=== PATIENT | female | born 1960 | race Caucasian/White ===

== ENCOUNTER → 2017-08-19 | Day surgery (SDC) | payer OTHER ==
[~2017-08-19] VITALS: Ht 162.6 cm; Wt 103.4 kg
--- NOTE | 2017-08-19 14:26 | Operative Report ---
Operative/Inv Procedure Report Surgery Date: 08/19/17 Name of Procedure: Right axillary vein Port-A-Cath placement with ultrasound and fluoroscopic guidance Pre-Operative Diagnosis: Breast cancer Post-Operative Diagnosis: Same Estimated Blood Loss: scant Surgeon/Mail Teller: Julio Cesar PATTERSON,Bobo Kellogg Anesthesia: local monitored anesthesi Implants: PowerPort Operative/Procedure Note Note: Patient brought to the operating room and laid supine. The arm tucked and a roll placed behind the shoulder. Her right chest and neck were then prepped and draped. She was sedated. Using ultround imaging the left axillary vein was visualized and percutaneously accessed below the right clavicle at the confluence of the axillary and cephalic veins, after local anesthesia placed. A wire was placed on the right atrium. Confirmation with fluoroscopic imaging was performed. The left chest was then infiltrated further with local anesthesia an incision made over the wire. An inferiorly based pocket was created with blunt and cautery dissection. The port was placed into the pocket and the catheter measured under fluoroscopic imaging. It was trimmed to 23 cm. Using fluoroscopy the dilator was placed down into the SVC. The wire was removed and passed off the field. The catheter was placed through the peel-away sheath. Sheath was then removed. Final fluoroscopic images show the catheter in the atrial SVC junction. The catheter was aspirated and flushed with concentrated heparin. The port was anchored to the deep subcutaneous tissues tissues with 0 Vicryl suture. The skin was closed with 3-0 and 4-0 Vicryl. Steri-Strips and sterile dressing applied. Sponge and needle counts are correct.
--- NOTE | 2017-08-19 14:58 | RADIOLOGY REPORT ---
EXAMINATION: XR PORTABLE CHEST CLINICAL INFORMATION: Port-A-Cath placement COMPARISON: None TECHNIQUE: Portable frontal view of the chest was obtained. 2:31 PM FINDINGS: Right subclavian line catheter tip over the right atrial shadow. Catheter tip about 1.5 cm distal to the cavoatrial junction. There is no pneumothorax. The lungs are clear. No pulmonary vascular congestion. No pleural effusion. Cardiomediastinal contours are normal. IMPRESSION: Right subclavian line catheter tip of the right atrial shadow. No pneumothorax.
--- NOTE | 2017-08-19 15:28 | RADIOLOGY REPORT ---
EXAMINATION:\H\ \N\XR CHEST CLINICAL INFORMATION: Right-sided Port-A-Cath insertion. COMPARISON: Plain film portable chest x-ray dated 08/19/2017. TECHNIQUE: Frontal view of the chest was obtained. FINDINGS: 2 fluoroscopic images are submitted. A Port-A-Cath is present extending into the right subclavian vein. Fluoroscopy time: 1.0 minutes. 2. Cumulative dose, 6.5 mg. IMPRESSION: Fluoroscopic images from Port-A-Cath insertion..
== END ==
LOC: STS 01:55
DX: C50.119 Malignant neoplasm of central portion of unspecified female breast (principal); I10 Essential (primary) hypertension; E66.9 Obesity, unspecified; Z68.36 Body mass index [BMI] 36.0-36.9, adult; G47.33 Obstructive sleep apnea (adult) (pediatric)
CPT/HCPCS: 71045; C1788; J0690; J1644; J2250

== ENCOUNTER 2017-11-17 19:40 | Inpatient (IN) | payer OTHER ==
[~2017-11-17] VITALS: Ht 162.6 cm; Wt 91.7 kg
[~2017-11-17 19:40] MED LIST: LISINOPRIL20 M1 PO
--- NOTE | 2017-11-17 20:35 | RADIOLOGY REPORT ---
EXAMINATION: XR PORTABLE CHEST CLINICAL INFORMATION: Evaluate for pneumonia. Fever. COMPARISON: Chest x-ray from 08/19/2017. TECHNIQUE: Portable frontal view of the chest was obtained. FINDINGS: The right-sided chest port device is in place. No airspace opacities or pleural effusions are seen. The cardiomediastinal silhouette is normal. No acute osseous abnormality is evident. IMPRESSION: Clear lungs. No acute process.
[2017-11-17 20:36] LABS: ABSOLUTE BASOPHIL COUNT 0 /CUMM (0.0-0.2); ABSOLUTE EOSINOPHIL COUNT 0 /CUMM (0.0-0.7); ABSOLUTE GRANULOCYTE CT 3.9 /CUMM (1.4-6.5); ABSOLUTE LYMPH COUNT 0.6 /CUMM (1.2-3.4); ABSOLUTE MONOCYTE COUNT 0.4 /CUMM (0.10-0.60); BASOPHIL % 0.4 % (0.0-2.0); EOSINOPHIL % 0 % (0-5); GRANULOCYTE % 77.9 % (42.2-75.2); HEMATOCRIT 30.3 % (37-47); MEAN CORPUSCULAR HGB 27.3 PG (27.0-31.0); MEAN CORPUSCULAR HGB CONC 32.6 G/DL (33.0-37.0); MEAN CORPUSCULAR VOLUME 83.5 FL (81.0-99.0); MEAN PLATELET VOLUME 7.3 FL (7.4-10.4); PLATELET COUNT 216 /CUMM (130-400); RBC DISTRIBUTION WIDTH 17.1 % (11.5-14.5); RED BLOOD CELL CT 3.63 /CUMM (4.20-5.40)
--- NOTE | 2017-11-17 22:29 | ED GENERAL ADULT ---
History of Present Illness General Chief Complaint: General Adult Stated Complaint: FEVER OF 102.3, PT ON CHEMO MEDS Source: patient Exam Limitations: no limitations Vital Signs & Intake/Output Vital Signs & Intake/Output Vital Signs Date Time Temp Pulse Resp B/P B/P Pulse O2 O2 Flow FiO2 Mean Ox Delivery Rate 11/18 1600 Room Air 11/18 1422 98.8 90 20 126/74 96 Room Air 11/18 0554 98.6 82 20 138/86 94 Room Air 11/18 0110 94 11/18 0102 99.6 81 20 132/82 94 Room Air 11/18 0025 99.2 82 18 114/62 95 Room Air 11/17 2223 100.6 11/17 2220 97 18 130/71 94 11/17 2059 101.4 ED Intake and Output 11/18 0000 11/17 1200 Intake Total Output Total 400 Balance -400 Output, Urine 400 Patient 200 lb Weight Allergies Coded Allergies: phenobarbital (RASH 08/18/17) phenytoin (From DILANTIN) (RASH 08/18/17) Triage Note: PER PT HAD CHEMO YESTERDAY (ERIBULIN) FOR STAGE 4 METASTATIC L BREAST CANCER AND TODAY DEVELOPED FEVER TO 103.0 PT CO HEADACHE AND GUILLE PAIN(KIDNEY) Triage Nurses Notes Reviewed? yes Onset: Abrupt Duration: day(s): (1-2), constant, continues in ED, getting worse Timing: single episode today Injury Environment: home Severity: moderate, severe Severity Numbers: 7 No Modifying Factors: none Associated Symptoms: back pain, cough LMP (ages 10-50): post menopausal, unknown : No Patient currently breastfeeds: No HPI: 57-year-old female past medical history of metastatic cancer presents for evaluation of fever. Patient states that 2 or 3 days ago she developed flulike symptoms including cough and body aches. Today she noticed that she had a fever of 103. She has a history of metastatic left breast cancer and is currently on chemotherapy last dose chemotherapy was yesterday. SHE IS ON ERIBULIN which she gets once weekly for 2 weeks and gets a week off she's been doing this since August. She is not taking any Tylenol for her symptoms. He denies any chest pain but does report some shortness of breath due to the cough. She does not smoke no history of underlying lung disease. No lower extremity edema no rashes. She does report sick contacts at a wedding that she went to. 2 people had strep throat. She does not have a sore throat. She does report some pain in her left ear and some nasal congestion. No recent surgery. (Willi Franco) Reconcile Medications Olmesartan Medoxomil (Benicar) 20 MG TABLET 1 TAB PO DAILY bp (Reported) (Caro PATTERSON,Carlos) Past History Travel History Traveled to [place] past 21 day No Medical History Any Pertinent Medical History? see below for history Neurological: NONE EENT: NONE Cardiovascular: hypertension Respiratory: NONE Gastrointestinal: NONE Hepatic: NONE Renal: polycystic kidney disease Musculoskeletal: NONE Psychiatric: NONE Endocrine: NONE Cancer(s): breast cancer Surgical History Surgical History: cholecystectomy Psychosocial History Who do you live with Spouse Services at Home None What is your primary language Maltese Tobacco Use: Never used Family History Hx Contributory? No (Willi Franco) Review of Systems Review of Systems Constitutional: Reports: diaphoresis, fever, malaise. EENTM: Reports: nasal congestion. Respiratory: Reports: see HPI, cough, short of breath. Cardiovascular: Reports: no symptoms. GI: Reports: no symptoms. Genitourinary: Reports: no symptoms. Musculoskeletal: Reports: see HPI, back pain, muscle pain, muscle stiffness. Skin: Reports: no symptoms. Neurological/Psychological: Reports: no symptoms. Hematologic/Endocrine: Reports: no symptoms. Immunologic/Allergic: Reports: no symptoms. All Other Systems: Reviewed and Negative (Willi Franco) Physical Exam Physical Exam General Appearance: well developed/nourished, no apparent distress, alert, awake Head: atraumatic, normal appearance Eyes: Bilateral: normal appearance, PERRL, EOMI. Ears, Nose, Throat: normal pharynx, normal ENT inspection, hearing grossly normal Neck: normal inspection, supple, full range of motion Respiratory: normal breath sounds, chest non-tender, no respiratory distress, lungs clear Cardiovascular: regular rate/rhythm, normal peripheral pulses Peripheral Pulses: 2+ radial (R), 2+ radial (L) Gastrointestinal: normal bowel sounds, soft, non-tender, no organomegaly Back: normal inspection, normal range of motion, no vertebral tenderness Extremities: normal inspection, normal range of motion, no edema Neurologic/Psych: no motor/sensory deficits, awake, alert, oriented x 3, normal gait Skin: intact, normal color, warm/dry Lymphatic: no anterior cervical tony Core Measures ACS in differential dx? No CVA/TIA Diagnosis: No Sepsis Present: No Sepsis Focused Exam Completed? No (Dwayne BOYKIN,Willi) Progress Differential Diagnoses I considered the following diagnoses in my evaluation of the patient: [Febrile neutropenia, sepsis, pneumonia, influenza, UTI, intra-abdominal infection, PE, cellulitis, viral upper rest for infection, strep throat] Plan of Care: Orders Procedure Date/time Status CBC WITHOUT DIFFERENTIAL 11/19 599 Active BASIC ELECTROLYTES PLUS BUN&CR 11/19 599 Active Regular Diet 11/18 D Active Regular Diet 11/18 B Complete Change service to 11/18 722 Active CBC WITHOUT DIFFERENTIAL 11/18 599 Complete BASIC ELECTROLYTES PLUS BUN&CR 11/18 599 Complete NUTRITIONAL CONSULT 11/18 0109 Active Weight 11/18 004 Active Vital Signs 11/18 48 Active Teach/Educate 11/18 48 Active Pain Treatment and Response 11/18 48 Active Nutritional Intake, Monitor 11/18 48 Active Isolation 11/18 48 Active Intake & Output 11/18 004 Active Patient Care Conference 11/18 004 Active Activity/Ambulation 11/18 004 Active BIPAP 11/18 UNK Active Lab Add-on Test 11/18 UN Active PHARMACY COMMUNICATION FORM 11/18 UN Active Pathway - chart 11/17 2332 Active House Staff 11/17 2332 Active Patient Data 11/17 233 Active Code Status 11/17 2332 Active Patient Data 11/17 233 Active THROAT CULTURE W/QUICK STREP 11/17 2326 Active Add-on Test (ER Only) 11/17 231 Active OXYGEN SETUP (GEN) 11/17 221 Active Saline Lock 11/18 2215 Active Admit to inpatient 11/17 221 Active Vital Signs 11/17 221 Active Activity/Ambulation 11/18 2215 Complete Code Status 11/18 2215 Complete Intake & Output 11/17 2122 Active CULTURE,URINE 11/18 2055 Active URINE OSMOLALITY 11/18 2055 Complete URINE LYTES, SPOT 11/18 2055 Complete VIRAL CULTURE 11/18 2035 Active SERUM OSMOLALITY 11/17 2022 Complete VTE Mechanical Prophylaxis 11/17 UNK Active Current Medications Sig/Hossein Start time Last Medication Dose Stop Time Status Admin Vancomycin HCl 1,000 MG 2359 11/18 2358 AC Sodium Chloride 250 ML (Normal Saline 0.9%) Ceftazidime 1,000 MG IQ8 11/18 0800 AC 11/18 (Fortaz) 1626 Sodium Chloride 1,000 ML Q13H 11/18 0100 AC 11/18 (Normal Saline 0.9%) 1545 Heparin Sodium 5,000 UNIT Q8 11/18 0015 AC 11/18 (Porcine) 1307 Acetaminophen 325 MG Q6 PRN 11/17 2345 AC (Tylenol) Laboratory Tests 11/18/17 0807: Anion Gap 10, Estimated GFR 15 L, BUN/Creatinine Ratio 10.0, CBC w Diff NO MAN DIFF REQ, RBC 3.22 L, MCV 83.1, MCH 27.3, MCHC 32.8 L, RDW 17.9 H, MPV 7.6, Gran % 66.9, Lymphocytes % 20.8, Monocytes % 11.6 H, Eosinophils % 0.1, Basophils % 0.6, Absolute Granulocytes 1.9, Absolute Lymphocytes 0.6 L, Absolute Monocytes 0.3, Absolute Eosinophils 0, Absolute Basophils 0 11/17/172300: Lactic Acid Cancelled 11/17/172055: Urine Color YEL, Urine Clarity CLEAR, Urine pH 6.0, Ur Specific [place] 1.015, Urine Protein 30 H, Urine Ketones NEG, Urine Nitrite NEG, Urine Bilirubin NEG, Urine Urobilinogen 0.2, Ur Leukocyte Esterase NEG, Ur Microscopic SEDIMENT EXAMINED, Urine RBC 1-3, Urine WBC 1-3 H, Ur Epithelial Cells RARE, Urine Bacteria RARE H, Urine Hemoglobin SMALL H, Urine Glucose NEG 11/17/172055: Urine Osmolality 323, Ur Random Creatinine 67.1, Ur Random Sodium 62, Ur Random Potassium 18.3, Fraction Sodium Excret 2.4 H 11/17/172035: Virus Culture Pending Microbiology 11/17 2108 BLOOD: Blood Culture - RES 11/18 2055 URINE ROUT: Urine Culture - RES 11/18 2035 NASOPHARYN: Influenza Virus A & B Rapid Smear - COMP Patient seen and evaluated. She has a history of metastatic breast cancer is currently on chemotherapy. She had a MAXIMUM TEMPERATURE of 103 today. We'll check basic labs including blood cultures. Patient was medicated with IV fluids and IV Tylenol. Patient's fever has persisted despite fluids and Tylenol. Her labs do not show neutropenia or an elevated white blood cell count. She does have some acute kidney injury with a creatinine at 3.5 she normally runs in the twos. Chest x- ray is negative. A CT scan of the chest, pelvis was ordered for further evaluation. CT scan does not show any focus of infection. Patient continues to have fever of unknown origin. Due to patient's history of metastatic breast cancer on chemotherapy she'll be admitted for further evaluation and treatment. Patient will be started on prophylactic antibiotics Fortaz and vancomycin. Continue with IV fluids. Discussed case with Dr. LACEY and he agrees. Diagnostic Imaging: Viewed by Me: Radiology Read, CT Scan. Discussed w/RAD: Radiology Read, CT Scan. Radiology Impression: PATIENT: DAJA WALLER PRESENT AGE: 57 PATIENT ACCOUNT NO: [id number] : 60 LOCATION: [facility] ORDERING PHYSICIAN: Willi BOYKIN SERVICE DATE: 11/17/17 EXAM TYPE: CAT - CT ABD & PELVIS W/O IV CONTRAS; CT CHEST WO IV CONTRAST EXAMINATION: CT CHEST, ABDOMEN AND PELVIS WITHOUT CONTRAST CLINICAL INFORMATION: Fever of unknown origin . History of breast cancer. COMPARISON: Chest x-ray 11/17/2017. CT scan abdomen pelvis 09/27/2017. CT of chest abdomen pelvis 03/20/2016. PET/CT study 07/22/2016. TECHNIQUE: Multidetector volumetric CT imaging of the chest, abdomen and pelvis was without oral or intravenous contrast. Coronal and sagittal reformatted images are performed at the CT scanner. DLP: 734.6 mGy-cm. FINDINGS: CT CHEST: Lungs: The lungs are clear with no evidence of inflammation or nodules. Mediastinum: There is a small pericardial effusion. This is new since CAT scan of 03/20/2016. There is enlarged lymph node in the prevascular retrosternal space measuring 1.5 cm axial image 16 (2). Central port catheter tip in the superior vena cava. Pleura: There is no pleural effusion. No pleural mass or thickening. Axilla: Status post left breast implant. There is large lymph nodes in the left axilla. Largest lymph node measuring 4 cm. This lymph node is new since the CAT scan 03/20/2016. CT ABDOMEN AND PELVIS: LIVER, GALLBLADDER, AND BILIARY TREE: Multiple hypodense lesions throughout the liver. These are unchanged since prior CAT scans consistent with hepatic cysts. No new lesions. No intrahepatic bile duct dilatation. Status post cholecystectomy. PANCREAS: No acute change of the pancreas. No mass. No pancreatic duct dilatation. SPLEEN: Spleen normal in size and contour. No focal lesion. ADRENAL GLANDS: Adrenal glands are normal in size. No focal mass. KIDNEYS AND URETERS: Numerous hypodense cysts scattered with calcifications throughout the parenchyma both kidneys. There is no hydronephrosis. No ureteral calculi. BLADDER: Unremarkable. GASTROINTESTINAL TRACT: No acute change of the bowel. No bowel obstruction. No bowel wall thickening or edema. There is a moderate to large- volume of stool scattered throughout the colon. The appendix is not identified. Small bowel loops are unremarkable. MESENTERY: No focal inflammation. No free fluid. No free air. ABDOMINAL WALL: No significant hernia is appreciated. LYMPH NODES: There are multiple small lymph nodes in the retroperitoneum the parapelvic paracaval location. These are stable since 09/27/2017. VASCULAR: Unremarkable. PELVIC VISCERA: Uterus is anteverted. No adnexal abnormality. OSSEOUS STRUCTURES: Focal sclerotic lesion of the T3 vertebrae there is focal sclerotic lesion of the right iliac wing adjacent to the sacroiliac joint. These are stable since CAT scan 09/27/2017. Both of these lesions are not FDG avid on the PET/CT study of 07/22/2016. IMPRESSION: 1. Small pericardial effusion. 2. Lymphadenopathy in the left axilla and retroperitoneum. 3. Focal sclerotic metastatic lesions in T3 and right iliac. Both of these lesions were no longer FDG avid on the PET/CT study of 07/22/2016. 4. Multiple hypodensities of the liver consistent with hepatic cysts unchanged since 03/20/2016. 5. Multiple renal cysts stable since prior studies. DICTATED BY: Mani Davis MD DATE/TIME DICTATED:11/17/172248 SYNTHETIC GEM PRESS OPERATOR:ULISES DATE/TIME TRANSCRIBED:2248 CONFIDENTIAL, DO NOT COPY WITHOUT APPROPRIATE AUTHORIZATION. < Electronically signed in Other Vendor System> SIGNED BY: Mani Davis MD [id number], PATIENT: DAJA WALLER PRESENT AGE: 57 PATIENT ACCOUNT NO: [id number] : 60 LOCATION: [facility] ORDERING PHYSICIAN: Willi BOYKIN SERVICE DATE: 11/17/17 EXAM TYPE: RAD - XRY- PORTABLE CHEST XRAY EXAMINATION: XR PORTABLE CHEST CLINICAL INFORMATION: Evaluate for pneumonia. Fever. COMPARISON: Chest x-ray from 08/19/2017. TECHNIQUE: Portable frontal view of the chest was obtained. FINDINGS: The right- sided chest port device is in place. No airspace opacities or pleural effusions are seen. The cardiomediastinal silhouette is normal. No acute osseous abnormality is evident. IMPRESSION: Clear lungs. No acute process. DICTATED BY: Herbert Zee MD DATE/TIME DICTATED:11/17/172029 SYNTHETIC GEM PRESS OPERATOR:ULISES DATE/TIME TRANSCRIBED:11/17/172029 CONFIDENTIAL, DO NOT COPY WITHOUT APPROPRIATE AUTHORIZATION. <Electronically signed in Other Vendor System> SIGNED BY: Herbert Zee MD 11/17/172034 Initial ED EKG: normal sinus rhythm, LEFT AXIS DEVIATION, BORDERLINE r-WAVE PROGRESSION IN ANTERIOR LEADS (Willi Franco) Departure Departure Disposition: STILL A PATIENT Condition: Stable Clinical Impression Primary Impression: Acute kidney injury Secondary Impressions: Fever Qualifiers: Fever type: unspecified Qualified Code: R50.9 - Fever, unspecified Referrals: Ish PATTERSON,Kelvin Mendez (PCP/Family) Departure Forms: Customer Survey General Discharge Information Admission Note Spoke With: Julio Feliz MDles Documentation of Exam: Documentation of any treatments & extenuating circumstances including Concerns Regarding Discharge (functional status, medication knowledge or non-compliance, living conditions, etc.) that warrant an admission rather than observation: [IV fluids, IV antibiotics, follow-up cultures, monitoring of vital signs, serial labs] (Willi Franco) PA/LABORATORY OPERATIONS COORDINATOR Co-Sign Statement Statement: ED Attending supervision documentation- X I saw and evaluated the patient. I have also reviewed all the pertinent lab results and diagnostic results. I agree with the findings and the plan of care as documented in the PA's/LABORATORY OPERATIONS COORDINATOR's documentation.Breast ca on chemo with fever, worsening renal failure [] I have reviewed the ED Record and agree with the PA's/LABORATORY OPERATIONS COORDINATOR's documentation. [] Additions or exceptions (if any) to the PAs/LABORATORY OPERATIONS COORDINATOR's note and plan are summarized below: [] (Caro PATTERSON,Carlos) Critical Care Note Critical Care Note Critical Care Time: non-applicable (Dwayne BOYKINWilli)
--- NOTE | 2017-11-17 23:13 | CT SCAN REPORT ---
EXAMINATION: CT CHEST, ABDOMEN AND PELVIS WITHOUT CONTRAST CLINICAL INFORMATION: Fever of unknown origin . History of breast cancer. COMPARISON: Chest x-ray 11/17/2017. CT scan abdomen pelvis 09/27/2017. CT of chest abdomen pelvis 03/20/2016. PET/CT study 07/22/2016. TECHNIQUE: Multidetector volumetric CT imaging of the chest, abdomen and pelvis was without oral or intravenous contrast. Coronal and sagittal reformatted images are performed at the CT scanner. DLP: 734.6 mGy-cm. FINDINGS: CT CHEST: Lungs: The lungs are clear with no evidence of inflammation or nodules. Mediastinum: There is a small pericardial effusion. This is new since CAT scan of 03/20/2016. There is enlarged lymph node in the prevascular retrosternal space measuring 1.5 cm axial image 16 (2). Central port catheter tip in the superior vena cava. Pleura: There is no pleural effusion. No pleural mass or thickening. Axilla: Status post left breast implant. There is large lymph nodes in the left axilla. Largest lymph node measuring 4 cm. This lymph node is new since the CAT scan 03/20/2016. CT ABDOMEN AND PELVIS: LIVER, GALLBLADDER, AND BILIARY TREE: Multiple hypodense lesions throughout the liver. These are unchanged since prior CAT scans consistent with hepatic cysts. No new lesions. No intrahepatic bile duct dilatation. Status post cholecystectomy. PANCREAS: No acute change of the pancreas. No mass. No pancreatic duct dilatation. SPLEEN: Spleen normal in size and contour. No focal lesion. ADRENAL GLANDS: Adrenal glands are normal in size. No focal mass. KIDNEYS AND URETERS: Numerous hypodense cysts scattered with calcifications throughout the parenchyma both kidneys. There is no hydronephrosis. No ureteral calculi. BLADDER: Unremarkable. GASTROINTESTINAL TRACT: No acute change of the bowel. No bowel obstruction. No bowel wall thickening or edema. There is a moderate to large-volume of stool scattered throughout the colon. The appendix is not identified. Small bowel loops are unremarkable. MESENTERY: No focal inflammation. No free fluid. No free air. ABDOMINAL WALL: No significant hernia is appreciated. LYMPH NODES: There are multiple small lymph nodes in the retroperitoneum the parapelvic paracaval location. These are stable since 09/27/2017. VASCULAR: Unremarkable. PELVIC VISCERA: Uterus is anteverted. No adnexal abnormality. OSSEOUS STRUCTURES: Focal sclerotic lesion of the T3 vertebrae there is focal sclerotic lesion of the right iliac wing adjacent to the sacroiliac joint. These are stable since CAT scan 09/27/2017. Both of these lesions are not FDG avid on the PET/CT study of 07/22/2016. IMPRESSION: 1. Small pericardial effusion. 2. Lymphadenopathy in the left axilla and retroperitoneum. 3. Focal sclerotic metastatic lesions in T3 and right iliac. Both of these lesions were no longer FDG avid on the PET/CT study of 07/22/2016. 4. Multiple hypodensities of the liver consistent with hepatic cysts unchanged since 03/20/2016. 5. Multiple renal cysts stable since prior studies.
--- NOTE | 2017-11-17 23:30 | History & Physical ---
Elena Jerry 11/17/17 3410: General Information and HPI MD Statement: I have seen and personally examined CLARISSAJessicaROELDAJA and documented this H &P. The patient is a 57 year old F who presented with a patient stated chief complaint of [Fever]. Source of Information: patient, old records Exam Limitations: no limitations History of Present Illness: Ms. Ravi is a 57yo F w/ PMH of Polycystic kidney disease, HTN, metastatic L breast CA s/p masectomy 2008, relapsed in 2015 w/ metastatic to bone and liver. and now on chemo (Eburlin last dose on 11/16) presented to ER w/ CC of fever. Patient is currently being taken care under Dr. Jus Espinosa for for her metastatic left breast cancer. Patient was started on eribulin chemotherapy back in 08/2017, with a frequency of chemotherapy every Thursday for 2 weeks and then 1 week off. Currently she is in the first week of the three-week cycle. Patient stated that she usually felt okay after chemotherapy without any severe complications. Yesterday after chemo she felt okay, but this morning prior to admission she felt lousy, and lay down to rest, and laid felt chill and fever of 102.4. Patient was represents possible sick contacts of strep throat at a wedding event, however she denies any sore throat, however admit to some coughing with greenish sputum. She also complained of some loose stool after chemotherapy on Thursday which was not common to her (she usually got constipated after chemo). Patient had lab done before chemo yesterday which showed sodium of 143, and creatinine around 3.6. However chemo was still administered. Patient used to be on lisinopril for hypertension, however later switched olmesartan 20 mg daily due to the side effect of coughing. Patient also endorsed some right upper quadrant dull abdominal pain which has been tolerable and chronic for up to start using of Eribulin, on/off. During our clinical interaction, patient denied Chest Pain/Palpitation/urinary abnormality, or other skin/musculoskeletal/neurological disorders/insomnia/ dietary/appetite change. Allergies/Medications Allergies: Coded Allergies: phenobarbital (RASH 08/18/17) phenytoin (From DILANTIN) (RASH 08/18/17) Home Med list Olmesartan Medoxomil (Benicar) 20 MG TABLET 1 TAB PO DAILY bp (Reported) Past History Travel History Traveled to [place] past 21 day No Medical History Neurological: NONE EENT: NONE Cardiovascular: hypertension Respiratory: NONE Gastrointestinal: NONE Hepatic: NONE Renal: polycystic kidney disease Musculoskeletal: NONE Psychiatric: NONE Endocrine: NONE Cancer(s): breast cancer Surgical History Surgical History: cholecystectomy Past Family/Social History Psychosocial History Services at Home: None Review of Systems Review of Systems Constitutional: Reports: see HPI. Exam & Diagnostic Data Last 24 Hrs of Vital Signs/I&O Vital Signs Date Time Temp Pulse Resp B/P B/P Pulse O2 O2 Flow FiO2 Mean Ox Delivery Rate 11/18 0025 99.2 82 18 114/62 95 Room Air 11/17 2222 100.6 11/18 2219 97 18 130/71 94 11/17 2058 101.4 11/17 1957 100.3 128 26 192/116 98 Intake & Output 11/18 0800 11/18 0000 11/17 1600 Intake Total Output Total 400 Balance -400 Output, Urine 400 Patient 90.718 kg Weight Physical Exam General Appearance Alert, Oriented X3, Cooperative, No Acute Distress Skin No Rashes, No Breakdown, No Significant Lesion Skin Temp/Moisture Exam: Hot/Dry Sepsis Skin Exam (color): Normal for Ethnicity HEENT Atraumatic Neck Supple, No JVD Lymphatic L axillary scar tissue with tenderness to palpation L cervical LN bulging since her last chemo Cardiovascular Regular Rate Lungs Clear to Auscultation, Normal Air Movement Abdomen Normal Bowel Sounds, Soft, Hepatomegaly, w/ imaging evidence of cysts., and tender to palpate Neurological Normal Speech Extremities Normal Pulses, +1 edema Last 24 Hrs of Labs/Wali: Laboratory Tests 11/17/172300: Lactic Acid Cancelled 11/17/172055: Urine Color YEL, Urine Clarity CLEAR, Urine pH 6.0, Ur Specific Irving 1.015, Urine Protein 30 H, Urine Ketones NEG, Urine Nitrite NEG, Urine Bilirubin NEG, Urine Urobilinogen 0.2, Ur Leukocyte Esterase NEG, Ur Microscopic SEDIMENT EXAMINED, Urine RBC 1-3, Urine WBC 1-3 H, Ur Epithelial Cells RARE, Urine Bacteria RARE H, Urine Hemoglobin SMALL H, Urine Glucose NEG 11/17/172022: Anion Gap 12, Estimated GFR 13 L, BUN/Creatinine Ratio 10.3, Glucose 114 H, Lactic Acid 0.7, Calcium 9.0, Total Bilirubin 0.6, AST 36, ALT 23, Alkaline Phosphatase 83, Troponin I < 0.01, Total Protein 7.5, Albumin 3.4 L, Globulin 4.1, Albumin/Globulin Ratio 0.8 L, CBC w Diff NO MAN DIFF REQ, RBC 3.63 L, MCV 83.5, MCH 27.3, MCHC 32.6 L, RDW 17.1 H, MPV 7.3 L, Gran % 77.9 H, Lymphocytes % 12.7 L, Monocytes % 9.0, Eosinophils % 0, Basophils % 0.4, Absolute Granulocytes 3.9, Absolute Lymphocytes 0.6 L, Absolute Monocytes 0.4, Absolute Eosinophils 0, Absolute Basophils 0 Microbiology 11/17 2108 BLOOD: Blood Culture - RECD 11/18 2055 URINE ROUT: Urine Culture - RECD 11/18 2035 NASOPHARYN: Influenza Virus A & B Rapid Smear - COMP 11/17 2022 BLOOD: Blood Culture - RECD Assessment/Plan Assessment: Problem list & Assessment: Patient presented with clinical picture fever, productive cough, but no leukocytosis or urinary symptoms, with some recent loose stool status post chemotherapy. Patient's fever could be a result of underlying infection, possibly pneumonia, although chest CT did not reveal any active consolidation. However patient could still be an immunocompromised state during her chemotherapy, which required broad-spectrum of antibiotic coverage, and to be ruled out for pneumonia and attribute the fever to chemotherapy. Patient's fever is unlikely to be a UTI without symptoms/unremarkable urinalysis. Patient DELICIA on CKD with baseline creatinine of 2.5 could be due to dehydration/ infection. Patient's hyponatremia is of unknown etiology. Pending further evaluation at this point Patient's hepatomegaly has been going on and off after starting of this new chemotherapy medication Eribulin. Patient had a gallbladder removed remotely, and no significant findings on abdominal CT. #Fever of unknown origin, pending rule out pneumonia/chemo therapy related #Hyponatremia #DELICIA on CKD #PMHs of Polycystic kidney disease, HTN, metastatic L breast CA Hospital Course: - Admit to general medicine floor pneumonia. Continuous monitoring of blood pressure every shift -Pending strep throat DVT prophylaxis Heparin + ALPS Regular Diet Full Code As Ranked By This Provider Problem List: 1. Fever Qualifiers Fever type: unspecified Qualified Code: R50.9 - Fever, unspecified 2. Acute kidney injury 3. Metastatic cancer 4. Abdominal pain Core Measures/Misc (04/05) Acute Coronary Syndrome ACS Diagnosis: No Congestive Heart Failure Congestive Heart Failure Diagnosis No Cerebrovascular Accident CVA/TIA Diagnosis: No VTE (View Protocol) VTE Risk Factors Age>40 No Mechanical VTE Prophylaxis d/t N/A MechProphylax Ordered No VTE Pharm Prophylaxis d/t NA PharmProphylax ordered Sepsis (View protocol) Sepsis Present: No Geri Craven 11/18/17 0045: Resident Review Statement Resident Statement: examined this patient, discussed with architecture internship Other Findings: Patient is a 57-year-old female with past medical history of metastatic breast cancer (dx 2008,s/p mastectomy and chemotherapy), relapsed in 2015 (with liver and bone metastases), now on Eribulin infusion (last dose 11/17/17), PCKD, hypertension presented to the ED for the evaluation of fever. Patient has metastatic breast cancer with stage IV breast cancer with mets to liver, bone(T3 and right iliac). She is on chemotherapy with Eribulin(receives infusion weekly for 2 weeks on/1 week off). Her last chemotherapy was yesterday. Past chemo yesterday patient reported feeling fatigued, with cough with productive yellow sputum, exertional shortness of breath, headache and body aches. She did go to work yesterday but kept feeling lousy throughout the day. She spiked a temperature of 102.3 at home. Denies any chest pain, palpitations, nausea, vomiting, urinary symptoms. She does admit to some loose stools that started today. Patient was at a wedding over the weekend and feels she might have been exposed to sick contacts(with cough). She however does not report any difficulty/discomfort in her throat. No history of NSAID use. She has baseline kidney disease(cr 2-3) and follows up with the network systems engineer in [place]. Her oncologist is Dr. Jus Tellez with [facility]. Her next scheduled chemotherapy is next Thursday(11/23/2017). She has been on multiple chemotherapies(unsuccessful) in the past and had radiation in June 2017. In the ED temperature was 100.3, pulse 128, respiration 26, blood pressure 192/ 116, saturating 98% on room air Labs significant for H&H of 9.9/30.3(baseline unknown), sodium 132, creatinine 3.5(baseline 2.5), normal liver functions. UA negative for infection Influenza negative EKG normal sinus rhythm no significant ST-T wave changes Chest x-ray showed no infiltrate. Chest/abdomen and pelvis CT showed metastatic lesions in T3 and right iliac bone , small pericardial effusion, lymphadenopathy in left axilla and retroperitoneum. Multiple hypodensities in the liver questionable metastasis seen Physical exam General: Awake, alert, oriented, no distress HEENT: PERRLA, EOMI, flushed cheeks, no sinus tenderness, no pharyngeal erythema , no thrush. Multiple supraclavicular lymph nodes palpated. 1 palpable lymph node in the left axillary region. Chest: Clear breath sounds bilaterally, chemotherapy port in the right chest wall appeared clean with no erythema. CVS: S1-S2 heard, no murmurs Abdomen: Right upper quadrant tenderness, rebound tenderness noted. No CVA tenderness. Cholecystectomy scar seen. Palpable hepatomegaly about 2 fingers. Extremities: Trace pedal edema bilaterally Assessment SIRS with unclear source of infection Fever of unknown origin Metastatic breast cancer on chemotherapy with Eribulin (Pablociclib) Bone and liver metastases Hyponatremia DELICIA on CKD Hypertension Polycystic kidney disease Small pericardial effusion Plan * Admit patient to [facility] * Vitals per protocol * IV hydration with normal saline at 75 cc an hour * Pancultures * Check a strep throat * Patient received 1 dose of ceftaz/Vanco in the ED. No source of infection could be identified. We will continue ceftazidime/vancomycin given patient's immunocompromised status. * Check Serum lytes, urine and plasma osmolarity for hyponatremia * DELICIA on CKD could be secondary to dehydration. We will avoid nephrotoxin, give patient fluids, and check renal function in a.m. * Hold Olmesartan given worsening renal function. Can use amlodipine if the blood pressure is high. * Nephrology consult in a.m. * Oncology consult in a.m. * Patient had all workup at [facility]. Please try to get records in a.m. * DVT prophylaxis subcutaneous heparin * Mild pain pathway * Regular diet * Full code , Tray PATTERSON, [facility] 11/18/17 0148: Attending MD Review Statement Attending Statement Attending MD Statement: examined this patient, discuss w/resident/PA/STOPPING BUILDER, agreed w/resident/PA/STOPPING BUILDER, discussed with family, reviewed images, amended to note Attending Assessment/Plan: 57 yo F with h/o HTN, left breast cancer s/p mastectomy with recontruction and chemo (2008), recurrence with metastases stage 4 (2015) s/p radiation and multiple chemo, currently on Eribulin infusions once every week (two weeks on, one week off, last dose was November 16), is here for evaluation of fever. For past two days, patient has been feeling fatigued with cough productive of green phlegm, dyspnea on exertion, malaise and chills. Today she noted her temperature was 102.3 at home. Reports few episodes of loose stools today. She was at a wedding this past weekend and feels she might have contracted something from there. She denies NSAID use. She follows with Dr. Tellez at [facility] and she has baseline CKD (creatinine in the 2.0's) for which she follows network systems engineer Dr. Herb Infante at [place]. On her bloodwork from yesterday prior to chemo, her creatinine was 3.6 Vitals: Tmax 101.4, HR 90-120's, BP 114/62, sats 95% RA. Exam: AAO, no pharyngeal erythema, PERRL, left sided axillary and supraclavicular LN palpable, Chest bibasilar crackles+, right chest chemo post intact, Abdomen soft, palpable liver with tenderness+, LE trace edema. Labs: no leukocytosis, H/H 9.9/30.3, Plt 216, ANC 3.9/ cumm, Na 132, bicarb 20, BUN 36, creat 3.5 (baseline is 2.0's), glucose 114, lactic acid 0.7, Lfts normal , trop neg. UA clear, mild proteinuria, WBC 1-3. CXR: clear lungs. CT CAP: small pericardial effusion, LN left axilla and retroperitoneum, metastatic lesion in T3 and right iliac, liver hypodensities hepatic cysts, multiple renal cysts unchanged. EKG: sinus rhythm, LAD, poor R-wave progression, nonspecific T wave changes. Assessment and plan: 1. Fever of unknown origin 2. SIRS 3. Recurrent metastatic breast cancer on chemotherapy 4. DELICIA superimposed on CKD 5. Normal anion gap metabolic acidosis 6. Small pericardial effusion (known) 7. Essential hypertension 8. Chronic normocytic anemia 9. Multiple hepatic and renal cysts - h/o PCKD - Admit to General medicine - Panculture - Urine legionella and strep Ag - Flu swab negative, check strep throat - Continue IV ceftaz and vanco for now - IV hydration - Oncology consult - Check urine lytes, urine osmolality - Avoid NSAIDs - Hold Olmesartan - Nephrology consult - Obtain information from patient's network systems engineer at [place] - Consider renal ultrasound - Check iron studies, TSH, free T4, B12, folic acid - Guaiac all stools - If persistent diarrhea, consider stool cultures DVT ppx Hep SC. Full code.
[2017-11-17] MEDS ORDERED: BENICAR20 M1 PO (23:54)
[2017-11-18 01:02] VITALS: BP 132/82
--- NOTE | 2017-11-18 01:50 | Admission Certification ---
Admission Certification Certification Statement - As attending physician, I certify that at the time of - admission, based on clinical presentation, severity of - symptoms, need for further diagnostic testing and - therapeutic interventions, and risk of adverse outcomes - without in-hospital treatment, in my clinical assessment, - this patient requires an acute hospital stay for a minimum - of two nights or longer. I have also considered psychsocial - factors such as support system, advanced age, financial - issues, cognitive issues, and failed out-patient treatments, - past re-admission history, safety of patient, and lack of - compliance as applicable. Specific rationale supporting this admission is: Fever and SIRS with DELICIA in this patient with recurrent metastatic breast cancer on chemotherapy.
[2017-11-18 05:54] VITALS: BP 138/86
--- NOTE | 2017-11-18 07:14 | PN- Housestaff ---
[facility] Subjective Follow-up For: Fever of unknown origin DELICIA on CKD Mild hyponatremia Subjective: No overnight events. She remained afebrile overnight. Seen and examined this morning. She denied any chest pain, short of breath, nausea, vomiting, chills, fever, abdominal pain and dysuria. She is on room air and maintaining saturation 94%. She has a port in right chest for chemotherapy. There are no signs of inflammation or infection around the port. Review of Systems Constitutional: Denies: chills, fever, weakness. EENTM: Reports: no symptoms. Cardiovascular: Denies: chest pain, orthopena, palpitations. Respiratory: Reports: cough. Denies: orthopnea, short of breath, sputum production. Gastrointestinal: Denies: abdominal pain, diarrhea, melena, nausea. Genitourinary: Reports: no symptoms. Neurological/Psychological: Reports: no symptoms. Objective Last 24 Hrs of Vital Signs/I&O Vital Signs Date Time Temp Pulse Resp B/P B/P Pulse O2 O2 Flow FiO2 Mean Ox Delivery Rate 11/18 0554 98.6 82 20 138/86 94 Room Air 11/18 0110 94 11/18 0102 99.6 81 20 132/82 94 Room Air 11/18 0025 99.2 82 18 114/62 95 Room Air 11/17 2223 100.6 11/17 2220 97 18 130/71 94 11/179 101.4 11/17 1957 100.3 128 26 192/116 98 Intake & Output 11/18 0800 / 0000 11/17 1600 Intake Total Output Total 1000 400 Balance -1000 -400 Output, Urine 1000 400 Patient 202 lb 200 lb Weight Weight Bed scale Measurement Method Physical Exam General Appearance: Alert, Oriented X3, Cooperative Skin: No Rashes Skin Temp/Moisture Exam: Warm/Dry Sepsis Skin Exam (color): Normal for Ethnicity HEENT: Atraumatic, PERRLA, EOMI Neck: Supple Lymphatic: Axillary nl, supraclavicular LN enlargement Cardiovascular: Normal S1, Normal S2 Lungs: Clear to Auscultation Abdomen: Soft, No Tenderness Neurological: Normal Speech, Strength at 5/5 X4 Ext, Normal Tone Extremities: No Edema Assessment/Plan Assessment: 57 yo F with PMH of HTN, NOAH on CPAP at night time, left breast cancer s/p mastectomy with recontruction and chemo (2008), recurrence with metastases stage 4 (2016) s/p radiation and multiple chemo, currently on Eribulin infusions once every week (two weeks on, one week off, last dose was November 16), is here for evaluation of fever. We are following the patient for following problems: Fever of unknown origin: -Patient's imaging studies negative for any pneumonia. -Her fever could be due to her chemotherapy. -This morning patient is afebrile. We will continue vancomycin and ceftaz and patient remained afebrile and 24 hours we will discontinue antibiotics. day 2 -Her WBC count was normal but consistent and patient is getting chemotherapy, possibly she didn't develop any immune response due to immunosuppression. -Today her wbc count dropped to 2.9 from 5 -Her influenza test is negative Acute on chronic kidney injury: -Patient has history of polycystic kidney disease -Probably due to dehydration. Her baseline creatinine is 2. Her GFR in September 2017 was 17. -On presentation patient's creatinine level was 3.5 and GFR was 13. -Stage IV kidney disease -Today Cr level is 3.2 -Hold olmesartan -Avoid nephrotoxic medications -Avoid NSAIDs -Follow-up nephrology recommendations Mild hyponatremia:(improving) -Possibly due to chemotherapy effect or CKD -Na level today 137 from 132 -We will follow urine lites result -Follow-up sodium levels History of hypertension: -olmesartan is on hold considering her acute on chronic kidney injury -Monitor her blood pressure Stage IV breast cancer: -Patient received last chemotherapy on Thursday -Chemotherapies are on hold now. -Follow-up oncology recommendations -We will get her records H/O NOAH: -Continue using CPAP at night time. DVT prophylaxis: Mechanical and subcutaneous heparin CODE STATUS: Full code Problem List: 1. Fever 2. [id number] kidney injury Pain Ratin Pain Location: none Pain Goal: Remain pain free Pain Plan: pain pathway Tomorrow's Labs & Rationales: cbc/bep Louise Marques MD 11/18/17 1137: Attending Review Statement Attending Statement Attending Statement: examined this patient, discuss w/resident/PA/GUITAR MAKER, agreed w/resident/PA/GUITAR MAKER, reviewed EMR data (avail), discussed with nursing, discussed with case mgmt, amended to note Attending Assessment/Plan: Patient seen and examined. Resting comfortably not in any acute distress. No issues overnight. She was febrile yesterday but is afebrile so far today. She is alert and oriented 3 and conversant appropriately. Review of systems is negative for any indication of an infectious process at present. Physical examination is unrevealing. Oncology consultation done earlier this morning appreciated. We will monitor patient on empiric antibiotic therapy. We will follow-up on culture results. If culture results are negative and patient remains afebrile she will be discharged home to follow-up with the oncology service as an outpatient. However if she continues to to be febrile with no obvious infectious etiology will consider consultation with the infectious disease service before attributing her symptoms to be purely secondary to her chemotherapy..
--- NOTE | 2017-11-18 07:22 | Cons- Oncology ---
General Information and HPI Consulting Request Date of Consult: 11/18/17 Requested By: Tray PATTERSON,Apolinar History of Present Illness: 57-year-old woman with known metastatic breast cancer admitted with fever and chills. This occurred on the night after receiving chemotherapy, Erbulin. The patient has had low-grade fevers after receiving chemotherapy in the recent past. She had low-grade fevers without rigors. Patient denied productive cough or dysuria.Currently she's feeling much improved. Patient denies port site discomfort. The patient has documented liver and bone metastases Allergies/Medications Allergies: Coded Allergies: phenobarbital (RASH 08/18/17) phenytoin (From DILANTIN) (RASH 08/18/17) Home Med List: Olmesartan Medoxomil (Benicar) 20 MG TABLET 1 TAB PO DAILY bp (Reported) Current Medications: Current Medications Sig/Hossein Start time Last Medication Dose Route Stop Time Status Admin Acetaminophen 325 MG Q6 PRN 11/17 2345 AC PO Ceftazidime 1,000 MG IQ8 11/18 0800 AC IV Ceftazidime 0 .STK-MED ONE 11/18 0012 DC .ROUTE Ceftazidime 1,000 MG ONCE ONE 11/17 2330 DC / IV 11/17 2331 0024 Heparin Sodium 5,000 UNIT Q8 11/18 0015 AC 11/18 (Porcine) SC 0601 Heparin Sodium 0 .STK-MED ONE 11/18 0012 DC (Porcine) .ROUTE Sodium Chloride 1,000 ML Q13H 11/18 0100 AC / IV 0135 Sodium Chloride 1,000 ML BOLUS ONE 11/17 2130 DC 05/ IV 11/17 2229 2145 Sodium Chloride 1,000 ML BOLUS ONE 11/18 1999 DC 05/ IV 11/17 Vancomycin HCl 1,000 MG DAILY 11/18 0900 AC Sodium Chloride 250 ML IV Vancomycin HCl 1,000 MG ONCE ONE 11/17 2330 DC 11/18 Sodium Chloride 250 ML IV 11/18 0029 0023 Review of Systems Review of Systems: Patient denies significant headaches or dizziness. Patient denies shortness of breath cough chest pain or hemoptysis. Patient denies nausea vomiting but has persistent right upper quadrant discomfort, has been attributed in the past to her metastatic disease. Patient denies hematuria. She denies new bone aches or focal neurologic deficit Past History Travel History Traveled to [place] past 21 day No Medical History Blood Transfusion Hx: Yes Neurological: SEIZURE ONCE CHILD EENT: NONE Cardiovascular: hypertension Respiratory: pneumonia Gastrointestinal: NONE Hepatic: NONE Renal: polycystic kidney disease Musculoskeletal: NONE Psychiatric: NONE Endocrine: NONE Blood Disorders: anemia Cancer(s): breast cancer, 2016 METASTASIZE BONE/ HEAD OF OPERATION AND LOGISTICS/Reproductive: NONE Surgical History Surgical History: cholecystectomy, CATIE CATH L MASTECTOMY TUBAL LIGATION L KNEE CYST REMOVED Psychosocial History Where Do You Live? Home Services at Home: None Smoking Status: Former Smoker Exam & Diagnostic Data Vital Signs and I&O Vital Signs Date Time Temp Pulse Resp B/P B/P Pulse O2 O2 Flow FiO2 Mean Ox Delivery Rate 11/18 0554 98.6 82 20 138/86 94 Room Air 11/18 0110 94 11/18 0102 99.6 81 20 132/82 94 Room Air 11/18 0025 99.2 82 18 114/62 95 Room Air 11/17 2223 100.6 11/17 2220 97 18 130/71 94 11/17 205 101.4 11/17 195 100.3 128 26 192/116 98 Intake & Output 11/18 0800 11/18 0000 11/17 1600 Intake Total Output Total 1000 400 Balance -1000 -400 Output, Urine 1000 400 Patient 202 lb 200 lb Weight Weight Bed scale Measurement Method Gen.: in NAD ENT: Sclera anicteric Chest: Normal respiratory effort, clear breath sounds Cor: RRR, no extra sounds Abdomen: Soft, bowel sounds present, minimal right upper quadrant tenderness, no rebound Extremities: Without clubbing, cyanosis, or asymmetric edema Neurology: Alert and oriented 3, no gross deficit Skin: No rashes Port site: Nontender fluctuance or erythema Last 48 Hours of Lab Results: Laboratory Tests 11/17 11/17 11/17 2301 2055 2055 Chemistry Lactic Acid Cancelled Urines Urine Color (YEL,AMB,STR) YEL Urine Clarity (CLEAR) CLEAR Urine pH (5.0 - 8.0) 6.0 Ur Specific [place] (1.001 - 1.035) 1.015 Urine Protein (NEG,<30 MG/DL) 30 H Urine Ketones (NEG) NEG Urine Nitrite (NEG) NEG Urine Bilirubin (NEG) NEG Urine Urobilinogen (0.1 - 1.0 EU/dl) 0.2 Ur Leukocyte Esterase (NEG) NEG Ur Microscopic SEDIMENT EXAMINED Urine RBC (0 - 5 /HPF) 1-3 Urine WBC (0 - 2 /HPF) 1-3 H Ur Epithelial Cells (NONE,FEW) RARE Urine Bacteria (NEG/NONE) RARE H Urine Hemoglobin (NEG) SMALL H Urine Osmolality (300 - 1000 MOSM/KG) 323 Ur Random Creatinine (mg/dL) 67.1 Ur Random Sodium (30 - 90 mmol/L) 62 Ur Random Potassium (mmol/L) 18.3 Fraction Sodium Excret (<1% %) 2.4 H Urine Glucose (N MG/DL) NEG 11/17 2022 Chemistry Sodium (137 - 145 mmol/L) 132 L Potassium (3.5 - 5.1 mmol/L) 4.4 Chloride (98 - 107 mmol/L) 100 Carbon Dioxide (22 - 30 mmol/L) 20 L Anion Gap (5 - 16) 12 BUN (7 - 17 mg/dL) 36 H Creatinine (0.5 - 1.0 mg/dL) 3.5 H Estimated GFR (>60 ml/min) 13 L BUN/Creatinine Ratio (7 - 25 %) 10.3 Glucose (65 - 99 mg/dL) 114 H Serum Osmolality (285 - 295 MOSM/KG) 286 Lactic Acid (0.7 - 2.1 mmol/L) 0.7 Calcium (8.4 - 10.2 mg/dL) 9.0 Total Bilirubin (0.2 - 1.3 mg/dL) 0.6 AST (14 - 36 U/L) 36 ALT (9 - 52 U/L) 23 Alkaline Phosphatase (<127 U/L) 83 Troponin I (< 0.11 ng/ml) < 0.01 Total Protein (6.3 - 8.2 g/dL) 7.5 Albumin (3.5 - 5.0 g/dL) 3.4 L Globulin (1.9 - 4.2 gm/dL) 4.1 Albumin/Globulin Ratio (1.1 - 2.2 %) 0.8 L Hematology CBC w Diff NO MAN DIFF REQ WBC (4.8 - 10.8 /CUMM) 5.0 RBC (4.20 - 5.40 /CUMM) 3.63 L Hgb (12.0 - 16.0 G/DL) 9.9 L Hct (37 - 47 %) 30.3 L MCV (81.0 - 99.0 FL) 83.5 MCH (27.0 - 31.0 PG) 27.3 MCHC (33.0 - 37.0 G/DL) 32.6 L RDW (11.5 - 14.5 %) 17.1 H Plt Count (130 - 400 /CUMM) 216 MPV (7.4 - 10.4 FL) 7.3 L Gran % (42.2 - 75.2 %) 77.9 H Lymphocytes % (20.5 - 51.1 %) 12.7 L Monocytes % (1.7 - 9.3 %) 9.0 Eosinophils % (0 - 5 %) 0 Basophils % (0.0 - 2.0 %) 0.4 Absolute Granulocytes (1.4 - 6.5 /CUMM) 3.9 Absolute Lymphocytes (1.2 - 3.4 /CUMM) 0.6 L Absolute Monocytes (0.10 - 0.60 /CUMM) 0.4 Absolute Eosinophils (0.0 - 0.7 /CUMM) 0 Absolute Basophils (0.0 - 0.2 /CUMM) 0 Cultures-negative thus far, negative flu swab Imaging/Other Studies: CT-chest, abdomen, pelvis-no IV contrast-small pericardial effusion, axillary and retroperitoneal lymphadenopathy, no pulmonary infiltrates Assessment/Plan Assessment: 1. Fever-no obvious source of infection is apparent, patient is not neutropenic. ? Related to chemotherapy; patient is clinically stable Recommend- Follow cultures If no infection identified after 48 hours, hopefully antibiotics can be discontinued 2. Stage IV breast cancer-chemotherapy on hold Recommendations: .. Consult Acknowledgment - Thank you for your consult request.
--- NOTE | 2017-11-18 08:26 | PN- Student ---
Subjective Subjective: Patient states she is feeling much better since admission. She has no fatigue ( more than baseline from chemotherapy), no malaise. She has a cough which has been present for more than three weeks, it is not associated with any sputum production and is more severe when she is walking aorund. She denies SOB, nausea , vomiting, diarrhea, abdominal pain, polyuria, dysuria and body aches. Objective Objective: Well developed, well nourished female laying comfortably in her bed in no acute distress Lungs were clear to auscutation throughout Normal S1, S2 no murmurs, rups, gallops Abdomin was midly tender on deep palpation over liver (pt states this is due to previous adhesions) Results Results: Microbiology Date/Time Procedure - Status Source Growth 11/17 2108 Blood Culture - [facility] BLOOD 11/18 2055 Urine Culture - RES URINE ROUT 11/18 2035 Influenza Virus A & B Rapid Smear - COMP NASOPHARYN 11/17 2022 Blood Culture - [facility] BLOOD Vital Signs Date Time Temp Pulse Resp B/P B/P Pulse O2 O2 Flow FiO2 Mean Ox Delivery Rate 11/18 0454 98.6 82 20 138/86 94 Room Air 11/18 0110 94 11/18 0102 99.6 81 20 132/82 94 Room Air 11/18 0025 99.2 82 18 114/62 95 Room Air 11/17 2223 100.6 11/17 2220 97 18 130/71 94 11/17 2058 101.4 11/17 195 100.3 128 26 192/116 98 Intake & Output 11/18 1600 11/18 0800 11/18 0000 Intake Total 570 Output Total 1800 400 Balance -1230 -400 Intake, IV 450 Intake, Oral 120 Number 0 Bowel Movements Output, Urine 1800 400 Patient 202 lb 200 lb Weight Weight Bed scale Measurement Method Laboratory Tests 11/18/17 0807: Anion Gap 10, Estimated GFR 15 L, BUN/Creatinine Ratio 10.0, CBC w Diff NO MAN DIFF REQ, RBC 3.22 L, MCV 83.1, MCH 27.3, MCHC 32.8 L, RDW 17.9 H, MPV 7.6, Gran % 66.9, Lymphocytes % 20.8, Monocytes % 11.6 H, Eosinophils % 0.1, Basophils % 0.6, Absolute Granulocytes 1.9, Absolute Lymphocytes 0.6 L, Absolute Monocytes 0.3, Absolute Eosinophils 0, Absolute Basophils 0 11/17/172300: Lactic Acid Cancelled 11/17/172055: Urine Color YEL, Urine Clarity CLEAR, Urine pH 6.0, Ur Specific [place] 1.015, Urine Protein 30 H, Urine Ketones NEG, Urine Nitrite NEG, Urine Bilirubin NEG, Urine Urobilinogen 0.2, Ur Leukocyte Esterase NEG, Ur Microscopic SEDIMENT EXAMINED, Urine RBC 1-3, Urine WBC 1-3 H, Ur Epithelial Cells RARE, Urine Bacteria RARE H, Urine Hemoglobin SMALL H, Urine Glucose NEG 11/17/172055: Urine Osmolality 323, Ur Random Creatinine 67.1, Ur Random Sodium 62, Ur Random Potassium 18.3, Fraction Sodium Excret 2.4 H 11/17/172035: Virus Culture Pending 11/17/172022: Anion Gap 12, Estimated GFR 13 L, BUN/Creatinine Ratio 10.3, Glucose 114 H, Serum Osmolality 286, Lactic Acid 0.7, Calcium 9.0, Total Bilirubin 0.6, AST 36, ALT 23, Alkaline Phosphatase 83, Troponin I < 0.01, Total Protein 7.5, Albumin 3.4 L, Globulin 4.1, Albumin/Globulin Ratio 0.8 L, CBC w Diff NO MAN DIFF REQ, RBC 3.63 L, MCV 83.5, MCH 27.3, MCHC 32.6 L, RDW 17.1 H, MPV 7.3 L, Gran % 77.9 H, Lymphocytes % 12.7 L, Monocytes % 9.0, Eosinophils % 0, Basophils % 0.4, Absolute Granulocytes 3.9, Absolute Lymphocytes 0.6 L, Absolute Monocytes 0.4, Absolute Eosinophils 0, Absolute Basophils 0 Microbiology 11/17 2108 BLOOD: Blood Culture - [facility] 11/18 2055 URINE ROUT: Urine Culture - RES 11/18 2035 NASOPHARYN: Influenza Virus A & B Rapid Smear - COMP 11/17 2022 BLOOD: Blood Culture - [facility] Assessment/Plan Assessment: 57 yo female with PMHx of polycystic kidney disease, HTN, and metastatic L breast cancer status post masectomy 2008 currently on chemotherapy (E[place]lin) was admitted for fever of 102 after recieving chemo dose, currently is aferbile and without any other symptoms. The CBC shows decreased Hgb/Hct and leukopenia, her metabolic panel shows elevation in creatine (2.3nl) and BUN, chest CT and CT abdomin is non contributory, inital cultures are negative for growth. Problems: 1. Fever of unknown origin 2. Recurrent metastatic breast cancer 3. DELICIA 4. Non-anion gap metabolic acidosis 5. Microcytic anemia and leukopenia Plan: 1. Fever of unknown origin: With priliminary negative culture and no other obvious findings discontinue IV ceftazodine and vancomycin if the patient remains afebrile for the next 24 hrs. It is likely that this fever could have been a more severe reaction to the chemotherapy because the patient states that this has happened before on infusion. It could also be related to the metestatic disease, although this is less likely because she does not experience fevers regularly and has had the metestatic cancer since 2016. 2. Recurrent metestatic breast cancer: continue with the scheduled chemotherapy treatments. The patient is not presenting with hypersensitivity to the agent which is the only contraindication recognized. 3. DELICIA: continue monitoring the creatinine and BUN levels, currently they are trending down likely due to the rehydration administered on admission. The injury is likely temporary and will resolve in a few days. 4. Non-anion gap metabolic acidosis: could be related to the loose stools that the patient experienced after chemotherapy along with the kidney injury. 5. Microcytic anemia and leukopenia: likely related to the chemotherapy as it is bone marrow supressive. Continue monitoring and only intervene if fever worsens or tissue oxygenation is impaired.
[2017-11-18 09:04] LABS: ABSOLUTE BASOPHIL COUNT 0 /CUMM (0.0-0.2); ABSOLUTE EOSINOPHIL COUNT 0 /CUMM (0.0-0.7); ABSOLUTE GRANULOCYTE CT 1.9 /CUMM (1.4-6.5); ABSOLUTE LYMPH COUNT 0.6 /CUMM (1.2-3.4); ABSOLUTE MONOCYTE COUNT 0.3 /CUMM (0.10-0.60); BASOPHIL % 0.6 % (0.0-2.0); EOSINOPHIL % 0.1 % (0-5); GRANULOCYTE % 66.9 % (42.2-75.2); HEMATOCRIT 26.8 % (37-47); MEAN CORPUSCULAR HGB 27.3 PG (27.0-31.0); MEAN CORPUSCULAR HGB CONC 32.8 G/DL (33.0-37.0); MEAN CORPUSCULAR VOLUME 83.1 FL (81.0-99.0); MEAN PLATELET VOLUME 7.6 FL (7.4-10.4); PLATELET COUNT 164 /CUMM (130-400); RBC DISTRIBUTION WIDTH 17.9 % (11.5-14.5); RED BLOOD CELL CT 3.22 /CUMM (4.20-5.40); WHITE BLOOD CELL COUNT 2.9 /CUMM (4.8-10.8)
--- NOTE | 2017-11-18 13:46 | Cons- Nephrology ---
General Information and HPI Consulting Request Date of Consult: 11/18/17 Requested By: Jerald PATTERSON,Louise History of Present Illness: Ms. Art is a pleasant 57 yo F with h/o ADPKD (no other known family history as both parents in their 40's) who was diagnosied with breast cancer in 2008 and treated then now with recurrent disease with bony mets. She is currently on Eribulin at [facility]. Review of labs there show a creatinine in the high 2's dating back to 2015 and 2.4 in 2014. She had a recent creatinine of 2.9 about a month ago. She had gotten chemotherapy but developed a fever to 102 shortly thereafter and came to the ED. Cr here was 3.5 down th 3.2 with hydration. She is on Benicar for BP control. THis is recent but she had been on lisinopril prior to that. She is followed by Dr. Infante in [place] for her kidney disease and Dr. Tellez at [facility] for her chemo. She denies use of NSAIDs ( she had been told to avoid these) She has 3 children in their 20's and 30's who have not been screened for ADPKD. Allergies/Medications Allergies: Coded Allergies: phenobarbital (RASH 08/18/17) phenytoin (From DILANTIN) (RASH 08/18/17) Home Med List: Olmesartan Medoxomil (Benicar) 20 MG TABLET 1 TAB PO DAILY bp (Reported) Review of Systems Review of Systems: As in HPI. Fevers to 102 better now. 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 Home Services at Home: None Smoking Status: Former Smoker Exam & Diagnostic Data Vital Signs and I&O F NAD BP 138/86 P 82 T 98.6 TM 102 Skin neg rash Eyes anicteric ENT moist lungs clear Cor rRR Avd soft N/T Ext neg edema Neuro nonfocal Results Pertinent Lab Results: Laboratory Tests 11/18 11/17 0807 2301 Chemistry Sodium (137 - 145 mmol/L) 137 Potassium (3.5 - 5.1 mmol/L) 4.0 Chloride (98 - 107 mmol/L) 108 H Carbon Dioxide (22 - 30 mmol/L) 19 L Anion Gap (5 - 16) 10 BUN (7 - 17 mg/dL) 32 H Creatinine (0.5 - 1.0 mg/dL) 3.2 H Estimated GFR (>60 ml/min) 15 L BUN/Creatinine Ratio (7 - 25 %) 10.0 Lactic Acid Cancelled Hematology CBC w Diff NO MAN DIFF REQ WBC (4.8 - 10.8 /CUMM) 2.9 L RBC (4.20 - 5.40 /CUMM) 3.22 L Hgb (12.0 - 16.0 G/DL) 8.8 L Hct (37 - 47 %) 26.8 L MCV (81.0 - 99.0 FL) 83.1 MCH (27.0 - 31.0 PG) 27.3 MCHC (33.0 - 37.0 G/DL) 32.8 L RDW (11.5 - 14.5 %) 17.9 H Plt Count (130 - 400 /CUMM) 164 MPV (7.4 - 10.4 FL) 7.6 Gran % (42.2 - 75.2 %) 66.9 Lymphocytes % (20.5 - 51.1 %) 20.8 Monocytes % (1.7 - 9.3 %) 11.6 H Eosinophils % (0 - 5 %) 0.1 Basophils % (0.0 - 2.0 %) 0.6 Absolute Granulocytes (1.4 - 6.5 /CUMM) 1.9 Absolute Lymphocytes (1.2 - 3.4 /CUMM) 0.6 L Absolute Monocytes (0.10 - 0.60 /CUMM) 0.3 Absolute Eosinophils (0.0 - 0.7 /CUMM) 0 Absolute Basophils (0.0 - 0.2 /CUMM) 0 05/01 05/01 05/01 2056 2056 2036 Serology Virus Culture Pending Urines Urine Color (YEL,AMB,STR) YEL Urine Clarity (CLEAR) CLEAR Urine pH (5.0 - 8.0) 6.0 Ur Specific [place] (1.001 - 1.035) 1.015 Urine Protein (NEG,<30 MG/DL) 30 H Urine Ketones (NEG) NEG Urine Nitrite (NEG) NEG Urine Bilirubin (NEG) NEG Urine Urobilinogen (0.1 - 1.0 EU/dl) 0.2 Ur Leukocyte Esterase (NEG) NEG Ur Microscopic SEDIMENT EXAMINED Urine RBC (0 - 5 /HPF) 1-3 Urine WBC (0 - 2 /HPF) 1-3 H Ur Epithelial Cells (NONE,FEW) RARE Urine Bacteria (NEG/NONE) RARE H Urine Hemoglobin (NEG) SMALL H Urine Osmolality (300 - 1000 MOSM/KG) 323 Ur Random Creatinine (mg/dL) 67.1 Ur Random Sodium (30 - 90 mmol/L) 62 Ur Random Potassium (mmol/L) 18.3 Fraction Sodium Excret (<1% %) 2.4 H Urine Glucose (N MG/DL) NEG 11/17 2022 Chemistry Sodium (137 - 145 mmol/L) 132 L Potassium (3.5 - 5.1 mmol/L) 4.4 Chloride (98 - 107 mmol/L) 100 Carbon Dioxide (22 - 30 mmol/L) 20 L Anion Gap (5 - 16) 12 BUN (7 - 17 mg/dL) 36 H Creatinine (0.5 - 1.0 mg/dL) 3.5 H Estimated GFR (>60 ml/min) 13 L BUN/Creatinine Ratio (7 - 25 %) 10.3 Glucose (65 - 99 mg/dL) 114 H Serum Osmolality (285 - 295 MOSM/KG) 286 Lactic Acid (0.7 - 2.1 mmol/L) 0.7 Calcium (8.4 - 10.2 mg/dL) 9.0 Total Bilirubin (0.2 - 1.3 mg/dL) 0.6 AST (14 - 36 U/L) 36 ALT (9 - 52 U/L) 23 Alkaline Phosphatase (<127 U/L) 83 Troponin I (< 0.11 ng/ml) < 0.01 Total Protein (6.3 - 8.2 g/dL) 7.5 Albumin (3.5 - 5.0 g/dL) 3.4 L Globulin (1.9 - 4.2 gm/dL) 4.1 Albumin/Globulin Ratio (1.1 - 2.2 %) 0.8 L Hematology CBC w Diff NO MAN DIFF REQ WBC (4.8 - 10.8 /CUMM) 5.0 RBC (4.20 - 5.40 /CUMM) 3.63 L Hgb (12.0 - 16.0 G/DL) 9.9 L Hct (37 - 47 %) 30.3 L MCV (81.0 - 99.0 FL) 83.5 MCH (27.0 - 31.0 PG) 27.3 MCHC (33.0 - 37.0 G/DL) 32.6 L RDW (11.5 - 14.5 %) 17.1 H Plt Count (130 - 400 /CUMM) 216 MPV (7.4 - 10.4 FL) 7.3 L Gran % (42.2 - 75.2 %) 77.9 H Lymphocytes % (20.5 - 51.1 %) 12.7 L Monocytes % (1.7 - 9.3 %) 9.0 Eosinophils % (0 - 5 %) 0 Basophils % (0.0 - 2.0 %) 0.4 Absolute Granulocytes (1.4 - 6.5 /CUMM) 3.9 Absolute Lymphocytes (1.2 - 3.4 /CUMM) 0.6 L Absolute Monocytes (0.10 - 0.60 /CUMM) 0.4 Absolute Eosinophils (0.0 - 0.7 /CUMM) 0 Absolute Basophils (0.0 - 0.2 /CUMM) 0 Assessment/Plan Assessment/Recommendations Assessment: 57 yo with metastatic breast cancer and known ADPKD. Review of labs at [facility] show creatinines mostly in the high 2's (some low 3's) for the past 2 years which I suspect is her ADPKD. She may have been a bit dehydrated after chemo with fever which may explain her Cr to 3.5 and correction to 3.2 Okay to restart Benicar if BP up. Cr near baseline. Continue IVF until eating well. Thanks will follow. Landon Castro MD Recommendations: .
[2017-11-18 14:22] VITALS: BP 126/74
--- NOTE | 2017-11-18 21:38 | Event Note ---
Event Note Event Note: S: Rapid response was called around 2119 for sudden fall of patient and the restroom, when this by the bedside nurse. Upon housestaff presentation on site, patient was alert and oriented 3 and stated that she was treated by her sock while turning too fast, and fell on her hip, hit her head, however without any specific complaint of pain/vision loss/headache/other specific symptoms. Patient denies any lightheadedness/loss of consciousness/palpitations/shortness of breath prior to the episode. Nursing bedside confirmed patient's statements. B: 57 yo F with PMH of HTN, NOAH on CPAP at night time, left breast cancer s/p mastectomy with recontruction and chemo (2008), recurrence with metastases stage 4 (2015) s/p radiation and multiple chemo, currently on Eribulin infusions once every week (two weeks on, one week off, last dose was November 16), is here for evaluation of fever. AR: Mechanical fall without signs of syncope/loss of consciousness/palpitation/ chest pain. Patient was alert and oriented 3, without any sensation/ neurological findings. Vital signs stable on presentation, was Accu-Chek of 99.
[2017-11-18 22:00] VITALS: BP 144/108
[2017-11-18 22:20] VITALS: BP 140/92
--- NOTE | 2017-11-18 22:23 | CT SCAN REPORT ---
EXAMINATION: CT HEAD WITHOUT CONTRAST CLINICAL INFORMATION: Fall. Hit head. COMPARISON: None. TECHNIQUE: Contiguous axial imaging was performed from the skull base to vertex without intravenous contrast. DLP: 611 mGy-cm. FINDINGS: There is no evidence of acute intracranial hemorrhage or territorial infarction. No abnormal mass effect or midline shift is seen. Harvey to white matter differentiation is well preserved. No extra-axial fluid collections are identified. No hydrocephalus. No significant volume loss. There is no abnormal attenuation within the brain parenchyma. The osseous structures and soft tissues are normal. The mastoid air cells and visualized portions of the paranasal sinuses are well aerated. IMPRESSION: No acute intracranial pathology.
--- NOTE | 2017-11-19 01:52 | Patient Discharge Instructions ---
Discharge Instructions General Discharge Information You were seen/treated for: Fever of unknown origin Acute on chronic kidney injury Watch for these problems: Fever, chills, chest pain, shortness of breath, cough, sputum, light headedness and loss of consciousness. If you experience any of these symptoms come to ED or call to pcp. Special Instructions: Follow up with your pcp in one week. Follow up with oncologist in one week and co lenore lozano chemotherapy. Follow up with your personal companion in one week. Diet Recommended Diet: Renal Dialysis Activity Activity Self Limited: Yes Acute Coronary Syndrome Inclusion Criteria At DC or during hospital stay patient has or had the following: ACS DIAGNOSIS No Discharge Core Measures Meds if any: Prescribed or Continued at Discharge Meds if any: NOT Prescribed or Continued at Discharge Congestive Heart Failure Inclusion Criteria At DC or during hospital stay patient has or had the following: CHF DIAGNOSIS No Discharge Core Measures Meds if any: Prescribed or Continued at Discharge Meds if any: NOT Prescribed or Continued at Discharge Cerebrovascular accident Inclusion Criteria At DC or during hospital stay patient has or had the following: CVA/TIA Diagnosis No Discharge Core Measures Meds if any: Prescribed or Continued at Discharge Meds if any: NOT Prescribed or Continued at Discharge Venous thromboembolism Inclusion Criteria VTE Diagnosis No VTE Type NONE VTE Confirmed by (Test) NONE Discharge Core Measures - Per Current guidelines, there needs to be overlap - treatment for the first 5 days of Warfarin therapy. - If discharged on Warfarin prior to 5 days of - overlap therapy, the patient will need to be - assessed for post discharge needs including - *Post discharge parental anticoagulation - *Warfarin and/or parental anticoagulation education - *Follow up date to check INR post discharge At least 5 days overlap therapy as Inpatient No Meds if any: Prescribed or Continued at Discharge Note: Overlap Therapy is Warfarin and Anticoagulant Meds if any: NOT Prescribed or Continued at Discharge
[2017-11-19 06:32] VITALS: BP 138/86
--- NOTE | 2017-11-19 06:58 | PN- Oncology ---
Subjective Subjective: Patient fell last night, no loss of consciousness; today without major complaints 12 point review of systems negative Objective Vital Signs and I&Os Vital Signs Date Time Temp Pulse Resp B/P B/P Pulse O2 O2 Flow FiO2 Mean Ox Delivery Rate 11/19 0532 98.9 75 18 138/86 94 05/ 0000 Room Air 11/18 2220 93 140/92 11/18 2200 99.7 91 18 144/108 11/18 1600 Room Air 11/18 1422 98.8 90 20 126/74 96 Room Air Intake & Output 11/19 0800 11/19 0000 11/18 1600 11/18 0800 11/18 0000 11/17 1600 Intake Total 720 1325 1500 570 Output Total 1400 6069 890 8658 400 Balance -680 125 900 -1230 -400 Intake, IV 600 525 600 450 Intake, Oral 120 800 900 120 Number 0 0 Bowel Movements Output, Urine 1400 9620 582 2070 400 Patient 202 lb 202 lb 200 lb Weight Weight Bed scale Measurement Method Gen.: in NAD ENT: Sclera anicteric Chest: Normal respiratory effort, decreased breath sounds Cor: RRR, no extra sounds Abdomen: Soft, bowel sounds present, minimal right upper quadrant tenderness, no rebound Extremities: Without clubbing, cyanosis, or asymmetric edema Neurology: Alert and oriented 3, no gross deficit Current Medications: Current Medications Sig/Hossein Start time Last Medication Dose Route Stop Time Status Admin Acetaminophen 325 MG Q6 PRN 11/17 2345 AC PO Ceftazidime 1,000 MG IQ8 11/18 0800 AC 11/19 IV 0004 Heparin Sodium 5,000 UNIT Q8 11/18 0015 AC 11/19 (Porcine) SC 0459 Ondansetron HCl 4 MG ONCE ONE 11/18 1914 DC 11/18 IV 11/18 191 1921 Patient Medication 1 ED ONE ONE 11/18 1115 DC 11/18 Teaching ED 11/18 1116 1217 Sodium Chloride 1,000 ML Q13H 11/18 0100 AC 11/19 IV 0553 Vancomycin HCl 1,000 MG 2359 11/18 2359 AC 11/19 Sodium Chloride 250 ML IV 0005 Vancomycin HCl 1,000 MG DAILY 11/18 0900 DC Sodium Chloride 250 ML IV Results Last 24 Hours of Lab Results: Laboratory Tests 11/18 11/18 2155 0807 Chemistry Sodium (137 - 145 mmol/L) 133 L 137 Potassium (3.5 - 5.1 mmol/L) 4.4 4.0 Chloride (98 - 107 mmol/L) 106 108 H Carbon Dioxide (22 - 30 mmol/L) 18 L 19 L Anion Gap (5 - 16) 9 10 BUN (7 - 17 mg/dL) 31 H 32 H Creatinine (0.5 - 1.0 mg/dL) 3.1 H 3.2 H Estimated GFR (>60 ml/min) 15 L 15 L BUN/Creatinine Ratio (7 - 25 %) 10.0 10.0 Troponin I (< 0.11 ng/ml) < 0.01 Hematology CBC w Diff NO MAN DIFF REQ WBC (4.8 - 10.8 /CUMM) 2.9 L RBC (4.20 - 5.40 /CUMM) 3.22 L Hgb (12.0 - 16.0 G/DL) 8.8 L Hct (37 - 47 %) 26.8 L MCV (81.0 - 99.0 FL) 83.1 MCH (27.0 - 31.0 PG) 27.3 MCHC (33.0 - 37.0 G/DL) 32.8 L RDW (11.5 - 14.5 %) 17.9 H Plt Count (130 - 400 /CUMM) 164 MPV (7.4 - 10.4 FL) 7.6 Gran % (42.2 - 75.2 %) 66.9 Lymphocytes % (20.5 - 51.1 %) 20.8 Monocytes % (1.7 - 9.3 %) 11.6 H Eosinophils % (0 - 5 %) 0.1 Basophils % (0.0 - 2.0 %) 0.6 Absolute Granulocytes (1.4 - 6.5 /CUMM) 1.9 Absolute Lymphocytes (1.2 - 3.4 /CUMM) 0.6 L Absolute Monocytes (0.10 - 0.60 /CUMM) 0.3 Absolute Eosinophils (0.0 - 0.7 /CUMM) 0 Absolute Basophils (0.0 - 0.2 /CUMM) 0 Cultures remain negative Recent Imaging Studies: [id number]-negative Assessment/Plan Assessment/Recommendations: 1. Fever-patient is clinically stable, cultures negative Hopefully antibiotics can be discontinued and patient discharged soon 2. Metastatic breast cancer-chemotherapy on hold 3. Leukopenia-patient is not neutropenic, follow CBC Patient will follow-up with once discharged
--- NOTE | 2017-11-19 07:18 | PN- Housestaff ---
[place] 11/19/17 0718: Subjective Follow-up For: Fever of unknown origin (resolved) DELICIA on CKD Mild hyponatremia(improved) Subjective: patient had rapid response last night after a mechanical fall. CT scan head was done as she hit her head that was negative. Orthostatic vitals were negative. Her EKG showing sinus rhythm and no acute ischemic changes, similar to the previous EKG. Seen and examined this morning. She denied any chest pain, short of breath, nausea, vomiting, chills, fever, abdominal pain dysuria. Patient remained afebrile overnight. Her blood cultures are negative so far. Possible discharge today. Patient was instructed to follow her wood sawyer and oncologist as outpatient. Review of Systems Constitutional: Denies: chills, fever, malaise. EENTM: Reports: no symptoms. Cardiovascular: Denies: chest pain, orthopena, palpitations. Respiratory: Reports: cough. Denies: orthopnea, short of breath, sputum production. Gastrointestinal: Denies: abdominal pain, constipation, diarrhea, distention, melena, nausea. Genitourinary: Reports: no symptoms. Neurological/Psychological: Reports: no symptoms. Objective Last 24 Hrs of Vital Signs/I&O Vital Signs Date Time Temp Pulse Resp B/P B/P Pulse O2 O2 Flow FiO2 Mean Ox Delivery Rate 11/19 0632 98.9 75 18 138/86 94 11/19 0000 Room Air 11/18 2220 93 140/92 11/18 2200 99.7 91 18 144/108 / 1600 Room Air 11/18 1422 98.8 90 20 126/74 96 Room Air Intake & Output 11/19 1600 11/19 0800 11/19 0000 Intake Total 720 1325 Output Total 1400 1200 Balance -680 125 Intake, IV 600 525 Intake, Oral 120 800 Output, Urine 1400 1200 Physical Exam General Appearance: Alert, Oriented X3, Cooperative Skin: No Rashes Skin Temp/Moisture Exam: Warm/Dry Sepsis Skin Exam (color): Normal for Ethnicity HEENT: Atraumatic, PERRLA, EOMI Neck: Supple Cardiovascular: Normal S1, Normal S2 Lungs: Clear to Auscultation Abdomen: Soft, No Tenderness Neurological: Normal Speech, Strength at 5/5 X4 Ext, Normal Tone Extremities: No Edema Assessment/Plan Assessment: 57 yo F with PMH of HTN, NOAH on CPAP at night time, left breast cancer s/p mastectomy with recontruction and chemo (2008), recurrence with metastases stage 4 (2016) s/p radiation and multiple chemo, currently on Eribulin infusions once every week (two weeks on, one week off, last dose was November 16), is here for evaluation of fever. We are following the patient for following problems: Fever of unknown origin: -Patient's imaging studies negative for any pneumonia. -Her fever could be due to her chemotherapy. -Patient remained afebrile and her blood cultures are negative so far so we discontinued her vancomycin and ceftaz. -Her WBC count dropped but she is not neutropenic. -Her influenza test is negative -Her wbc count is 2.9 today, no neutropenia. Acute on chronic kidney injury:(improving) -Patient has history of polycystic kidney disease -Probably due to dehydration. Her baseline creatinine is 2. Her GFR in September 2017 was 17. -Stage IV kidney disease. -Her Cr today is 3.0 -Avoid nephrotoxic medications -Avoid NSAIDs -We can start on olmesartan as per nephrology. Mild hyponatremia:(improving) -Possibly hypovolemic hyponatremia as it improved after iv fluids. -Na level today is 138 History of hypertension: -Patient's blood pressure remained under normal limits during hospital stay. Stage IV breast cancer: -After the discharge patient will follow her oncologist for chemotherapy. H/O NOAH: -Continue using CPAP at night time. DVT prophylaxis: Mechanical and subcutaneous heparin CODE STATUS: Full code Problem List: 1. [id number] kidney injury 2. Fever Pain Ratin Pain Location: none Pain Goal: Remain pain free Pain Plan: pain pathway Tomorrow's Labs & Rationales: none Louise Marques MD 11/19/17 1124: Attending MD Review Statement Attending Statement Attending MD Statement: examined this patient, discuss w/resident/PA/DESKTOP SUPPORT ASSOCIATE, agreed w/resident/PA/DESKTOP SUPPORT ASSOCIATE, reviewed EMR data (avail), discussed with nursing, discussed with case mgmt, amended to note Attending Assessment/Plan: Patient seen and examined. Resting comfortably not in any acute distress. Apparently last night while brushing CT she reports starting around suddenly feeling lightheaded. She is trying to steady herself she slumped down to the toilet bowl. She denies any loss of consciousness. She denies any trauma. She denies similar episode in the past. Although she does admit to when changing position mild dizziness on occasion she denies any episodes resulting in loss of consciousness. Orthostatic vitals were checked yesterday and were negative. Today she is alert and oriented 3. She has no focal neurologic deficit. She is ambulating freely without use of any assistive device. EKG this morning shows normal sinus rhythm with no ischemic changes. Unchanged from admission. Current cultures have returned negative. She has remained afebrile. White cell count is on the lower side but stable at 2.9. She is not neutropenic. Etiology of her fever is currently unknown at present. Probably related to her chemotherapy. She has no obvious evidence of infectious process and workup he has been negative. She is medically stable to be discharged home. She has been advised to follow-up with her oncologist in the outpatient setting. She has been advised to return to the ER should she develop fever
[2017-11-19 09:46] LABS: ABSOLUTE BASOPHIL COUNT 0 /CUMM (0.0-0.2); ABSOLUTE EOSINOPHIL COUNT 0 /CUMM (0.0-0.7); ABSOLUTE GRANULOCYTE CT 1.9 /CUMM (1.4-6.5); ABSOLUTE LYMPH COUNT 0.7 /CUMM (1.2-3.4); ABSOLUTE MONOCYTE COUNT 0.3 /CUMM (0.10-0.60); BASOPHIL % 0.5 % (0.0-2.0); EOSINOPHIL % 0.1 % (0-5); GRANULOCYTE % 66.1 % (42.2-75.2); HEMATOCRIT 26.3 % (37-47); MEAN CORPUSCULAR HGB 27.4 PG (27.0-31.0); MEAN CORPUSCULAR HGB CONC 32.8 G/DL (33.0-37.0); MEAN CORPUSCULAR VOLUME 83.4 FL (81.0-99.0); MEAN PLATELET VOLUME 7.6 FL (7.4-10.4); PLATELET COUNT 150 /CUMM (130-400); RBC DISTRIBUTION WIDTH 17.6 % (11.5-14.5); RED BLOOD CELL CT 3.16 /CUMM (4.20-5.40); WHITE BLOOD CELL COUNT 2.9 /CUMM (4.8-10.8)
--- NOTE | 2017-11-19 09:54 | Discharge Summary ---
Visit Information Visit Dates Admission Date: 11/17/17 Discharge Date: 11/19/17 Hospital Course Course Attending Physician: Louise Marques MD Primary Care Physician: Kelvin Deng MD Hospital Course: 57 yo F with PMH of HTN, NOAH on CPAP at night time, polycystic kidney diease, CKD stage IV, left breast cancer s/p mastectomy with recontruction and chemo ( 2008), recurrence with metastases stage 4 (2015) s/p radiation and multiple chemo, currently on Eribulin infusions once every week (two weeks on, one week off, last dose was November 16), is here for evaluation of fever. ED course: Vitals: Temperature 101.4, pulse 97, respiratory rate 18, blood pressure 130/71, oxygen saturation 94% on room air Labs: WBC count 5.0, hemoglobin 9.9, hematocrit 30.3, platelet count 216, sodium 132, potassium 4.4, BUN 36, creatinine 3.5, BUN/creatinine ratio 10.0, glucose 114, lactic acid 0.7 Fever of unknown origin: Patient presented with complaint of fever. Blood cultures were obtained in ED. Imaging studies were negative for any pneumonia or intra-abdominal pathology that could cause fever. Possibly patient's fever was due to chemotherapy- induced. Patient also reported that she had fever after chemotherapy is next temperature was 99F and this is the first time she had temperature 101.4F. initially patient was empirically covered with ceftaz and vancomycin considering her immunosuppression due to chemotherapy. Oncology consult was obtained and recommendations were followed. Patient's blood culture remained negative after 24 hours and she remained afebrile. Her antibiotics were discontinued and WBC was followed. Although patient WBC count dropped but she was not neutropenic. Her flu test was negative. During the hospital stay patient had mechanical fall as patient mentioned that she turned quickly and couldn't maintain her balance and fell down. As patient reported that she bumped her head, CT scan head was negative for any intracranial pathology. Patient denied any syncopal or fainting spell. Her EKG remained negative for any arrhythmias or acute ischemic injury. Orthostatics were negative. Patient reported that she always have some dizziness getting out of the bed and she usually sit in the bed for a couple of minutes and then get out of it. As patient remained afebrile, she was discharged and instructed to follow her primary care physician within one week. Patient was also instructed to follow her oncologist to continue her chemotherapy. Acute on chronic kidney injury: Patient had a history of polycystic kidney disease. Her baseline creatinine was 2 and GFR was 17. She had stage IV chronic kidney disease. She presented with acute on chronic kidney injury with elevated creatinine to 3.5 and GFR 15. Nephrology consult was obtained and recommendations were followed. Any nephrotoxic medication was divided. Her olmesartan was held considering her acute on chronic kidney injury. During the hospital stay her blood pressure remained under control without medication. Her creatinine and BUN was monitored. Her creatinine level started to improve. Nephrology recommended that we can start her home medication (olmesartan) if her blood pressure started to elevate. Patient was instructed to follow her manager home healthcare after the discharge and continue to take her blood pressure medication. Mild hyponatremia: Patient on admission had mild hyponatremia possibly hypovolemic hyponatremia considering her by mouth intake and fever or her kidney disease. Her sodium level was monitored. After the IV hydration it started to improve and patient remained asymptomatic. History of hypertension: Patient blood pressure during hospital stay remained under control without medication as her home medication was held due to acute on chronic kidney injury. After the discharge patient was instructed to continue her home medication and follow her manager home healthcare and primary care physician for further recommendations. Stage IV breast cancer: Patient had history of stage IV breast cancer and she was on chemotherapy. After the discharge patient was instructed to follow her oncologist to continue her chemotherapies. H/O NOAH: Patient brought her own CPAP machine from home and she was using CPAP during nighttime. DVT prophylaxis: Mechanical and subcutaneous heparin CODE STATUS: Full code Allergies: Coded Allergies: phenobarbital (RASH 08/18/17) phenytoin (From DILANTIN) (RASH 08/18/17) Disposition Summary Disposition Principal Diagnosis: Fever of unknown origin Acute on chronic kidney injury Mild hypovolemic hyponatremia Additional Diagnosis: History of hypertension History of stage IV breast cancer History of polycystic kidney disease Discharge Disposition: home or self care Discharge Instructions General Discharge Information Code Status: Full Code Patient's Diet: Regular diet Patient's Activity: Self-limited Follow-Up Instructions/Appts: Follow up with your pcp in one week. Follow up with oncologist in one week and co lenore lozano chemotherapy. Follow up with your manager home healthcare in one week. Medications at Discharge Discharge Medications: Continue taking these medications: Olmesartan Medoxomil (Benicar) 20 MG TABLET 1 Tablet ORAL DAILY Comments: NOT GIVEN IN HOSPITAL Copies To: Ish PATTERSON,Kelvin Mendez Attending MD Review Statement Documenting Attending: Louise Marques MD Other Findings: Patient is medically stable to be discharged
== END 2017-11-19 11:40 | DRG 683 ==
LOC: ERH 19:40 → 2NB 23:30 → ERHI 23:30 → ENRESERV 23:56 → 2NB 11-18 00:35 → ENPENDDIS 11-19 10:23 → ENTRNSPT 11-19 11:32 → 2NB 11-19 11:40 → EDTRNSPTSTS 11-19 11:44 → EDTRNSPT 11-19 11:44 → CMPTRNSPT 11-19 11:47
PROVIDERS: Physician Assistant Medical; Student in an Organized Health Care Education/Training Program
DX: N17.9 Acute kidney failure, unspecified (principal); R65.10 Systemic inflammatory response syndrome (SIRS) of non-infectious origin without acute organ dysfunction; C78.7 Secondary malignant neoplasm of liver and intrahepatic bile duct; C79.51 Secondary malignant neoplasm of bone; D70.1 Agranulocytosis secondary to cancer chemotherapy; E87.2 Acidosis; E87.1 Hypo-osmolality and hyponatremia; Q61.3 Polycystic kidney, unspecified; N18.4 Chronic kidney disease, stage 4 (severe); C50.912 Malignant neoplasm of unspecified site of left female breast; E86.0 Dehydration; I12.9 Hypertensive chronic kidney disease with stage 1 through stage 4 chronic kidney disease, or unspecified chronic kidney disease; T50.995A Adverse effect of other drugs, medicaments and biological substances, initial encounter; R50.2 Drug induced fever; Z92.21 Personal history of antineoplastic chemotherapy; Z90.12 Acquired absence of left breast and nipple; Z88.8 Allergy status to other drugs, medicaments and biological substances; Z90.49 Acquired absence of other specified parts of digestive tract; D64.9 Anemia, unspecified; W18.30XA Fall on same level, unspecified, initial encounter; Y92.231 Patient bathroom in hospital as the place of occurrence of the external cause; G47.33 Obstructive sleep apnea (adult) (pediatric)
CPT/HCPCS: 84133; 84300; ERO; 36415; 71045; 74176; 81001; 82436; 82570; 87040; 87086; 87804; 87804-59; 93005; 93010; 94799; 96365; 96366; J0713; J1644; J2405; J3370; J7040